=== PATIENT | male | born 1970 | race Caucasian/White ===

== ENCOUNTER 2021-04-13 16:12 | Emergency (ER) | payer BC ==
[2021-04-13] MEDS ORDERED: CASIRIVIMAB/IMDEVIMAB 10 ML in SODIUM CHLORIDE 100 ML IVPB ONE (16:50)
[2021-04-13 16:51] VITALS: TEMP 97.1; BMI 35.9
[2021-04-13 18:24] LABS: BASO % 0.9 % (0-2.0); EOS % 1.7 % (0-4.5); HEMATOCRIT 39.9 % (35.4-49); HEMOGLOBIN 13.9 GM/dL (11.7-16.9); LYMPH % 23.3 % (8-40); MCH 29.7 pg (25.7-33.7); MCHC 34.9 g/dl (32.0-35.9); MEAN CELL VOLUME 84.8 fl (80-96); MONO % 9.4 % (3.8-10.2); NEUT % 64.7 % (42.8-82.8); PLATELET COUNT 187 10^3/uL (134-434); RDW 13.9 % (11.9-15.9); WHITE BLOOD COUNT 7.1 K/mm3 (4.0-10.0)
[2021-04-13 18:39] LABS: CALCIUM 8.6 mg/dL (8.5-10.1)
[2021-04-13 18:40] LABS: ALBUMIN 3.4 g/dl (3.4-5.0); BLOOD UREA NITROGEN 16.2 mg/dL (7-18)
[2021-04-13 18:43] LABS: CREATININE 0.7 mg/dL (0.55-1.3)
[2021-04-13 18:44] LABS: BILIRUBIN,TOTAL 0.3 mg/dL (0.2-1); TOT PROT 6.7 g/dl (6.4-8.2)
[2021-04-13 20:12] VITALS: BP 98/68; PULSE 82
== END 2021-04-13 20:12 | disposition home or self-care (01) ==
LOC: JER 16:12
DX: U07.1 COVID-19 (principal)
CPT/HCPCS: 36415; 80053; 85025; 99284-25